=== PATIENT | male | born 2005 | race Caucasian/White ===

== ENCOUNTER 2024-08-24 15:01 | Emergency (ER) | payer SELFPAY ==
[2024-08-24 15:35] VITALS: BP 127/76; PULSE 91; RESP 18; TEMP 36.8; O2SAT 100
--- NOTE | 2024-08-24 16:43 | ED_ITS ---
HPI - Anxiety General Chief Complaint: Anxiety Stated Complaint: PSYCH EVAL Time Seen by Provider: 08/24/24 16:35 History of Present Illness HPI narrative: Pt presents with increased anxiety. 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 Pt can't afford the 90 day Rx of his meds so has not been filling his meds but instead has been smoking more weed which is not helping. Pt has appointment with psychiatrist tomorrow. Pt is not suicidal or homicidal. Related Data Allergies Allergy/AdvReac Type Severity Reaction Status Date / Time Penicillins Allergy Unknown Verified 08/24/24 15:03 Review of Systems 2 Review of Systems: All systems reviewed & are unremarkable except as noted in HPI and below PMFSH Social History Social History Substance use type: marijuana Exam 2 Const: General: healthy appearing and no acute distress Nutritional Appearance: well nourished Orientation/consciousness: patient oriented x3 Limitations: no limitations Eyes: Conjunctivae: conjunctivae normal EOM: EOMs intact bilaterally Resp: Effort & Inspection: normal respiratory effort Auscultation: clear to auscultation bilaterally Cardio: Rate: regular rate Rhythm: regular rhythm GI: GI Palp: Yes Soft to palpation and No Tenderness to palpation present (GI) Auscultation: normal bowel sounds Skin: General skin exam: normal color Rashes: no rashes Wounds: no wounds Neuro: General: patient oriented x3, moves all extremities, no focal motor deficits and CN's II-XI intact bilaterally Cranial nerves: Yes Nystagmus not present Speech: normal speech Extrem: General: normal to inspection and no clubbing, cyanosis or edema Psych: Mental Status: mental status grossly normal Affect: normal affect Attitude: cooperative Course Vital Signs Vital signs: Vital Signs Temperature 98.2 F 08/24/24 15:35 Pulse Rate 91 08/24/24 15:35 Respiratory Rate 18 08/24/24 15:35 Blood Pressure 127/76 08/24/24 15:35 Pulse Oximetry 100 08/24/24 15:35 Oxygen Delivery Room Air 08/24/24 15:35 Temperature 97.7 F 08/24/24 18:08 Pulse Rate 88 08/24/24 18:08 Respiratory Rate 18 08/24/24 18:08 Blood Pressure 122/68 08/24/24 18:08 Pulse Oximetry 100 08/24/24 18:08 Oxygen Delivery Room Air 08/24/24 15:35 MDM - Anxiety MDM Narrative Medical decision making narrative: Pt here with anxiety and not doing well mentally but not SI or HI and has nott been taking meds but smoking a lot of weed. Pt has appt with psychiatrist tomorrow. Will check some labs and make sure not medical and give dose of ativan. labs look fine. Pt feels better after ativan. will send home with follow up with psych tomorrow. Lab Data 08/24/24 17:15 08/24/24 16:55 Labs: Lab Results 08/24/24 08/24/24 Range/Units 16:55 17:15 WBC 13.3 H (4.5-10.0) K/mm3 RBC 6.11 (4.6-6.20) M/mm3 Hgb 18.0 (14.0-18.0) g/dL Hct 52.8 H (42.0-52.0) % MCV 86.4 (80-100) fl MCH 29.5 (26-34) pg MCHC 34.1 (32-36) g/dl RDW 13.0 (11.5-14.5) % Plt Count 370 (150-375) k/mm3 MPV 9.5 (7.4-10.4) fl Immature Gran % (Auto) 0.3 (0-0.5) % Neut % (Auto) 78.0 H (45.5-73.1) % Lymph % (Auto) 14.3 L (18.3-44.2) % [place] % (Auto) 6.9 (2.6-8.5) % Eos % (Auto) 0.1 (0-4.4) % Baso % (Auto) 0.4 (0.2-1.2) % Lymph # (Auto) 1.90 (0.9-3.2) K/mm3 [place] # (Auto) 0.9 H (0.1-0.6) K/mm3 Eos # (Auto) 0.0 (0-0.3) K/mm3 Baso # (Auto) 0.1 (0.0-0.1) K/mm3 Abs Immat Gran (auto) 0.04 H (0.00-0.031) K/mm3 Absolute Neuts (auto) 10.4 H (1.3-6.7) K/mm3 Absolute Nucleated RBC 0.000 (0.0-0.012) K/mm3 Nucleated RBC % 0.0 (0.0-0.2) % Sodium 137 (137-145) mmol/L Potassium 4.6 (3.4-5.0) mmol/L Chloride 101 (98-107) mmol/L Carbon Dioxide 25 (22-30) mmol/L Anion Gap 11 (4-12) mmol/L BUN 17 (9-20) mg/dL Creatinine 0.90 (0.7-1.3) mg/dL Estim Creat Clear Calc 118 ml/min Estimated GFR > 60 (59 - ) Glucose 73 (65-110) mg/dL Calcium 10.4 H (8.4-10.2) mg/dL Total Bilirubin 0.9 (0.2-1.3) mg/dL AST 48 (17-59) U/L ALT 97 H (6-50) U/L Alkaline Phosphatase 103 (38-126) U/L Total Protein 9.0 H (6.3-8.2) g/dL Albumin 5.2 H (3.5-5.1) g/dL TSH 0.771 (0.465-4.680) uIU/mL Salicylates < 1.0 L (2-20) mg/dL Urine Opiates Screen Negative (Negative) Urine Methadone Screen Negative (Negative) Acetaminophen < 10 L (10-30) ug/mL Ur Barbiturates Screen Negative (Negative) Ur Phencyclidine Scrn Negative (Negative) Ur Amphetamine Screen Negative (Negative) U Benzodiazepines Scrn Negative (Negative) Urine Cocaine Screen Negative (Negative) U Cannabinoids Screen Positive A (Negative) Ethyl Alcohol < 10 (<10) mg/dL Discharge Plan Discharge Clinical Impression: Acute anxiety Patient Disposition: Home, Self-Care Condition: Improved Instructions: Antibiotic Form, Anxiety (ED) Patient Language: Georgian Follow-up/Referrals: UNKNOWN,DOCTOR [Primary Care Provider] -
[2024-08-24] MEDS: LORazepam (*CRX) 1 MG TABLET PO (17:06)
[2024-08-24 17:11] LABS: Acetaminophen < 10 ug/mL (10-30); Alanine Aminotransferase 97 U/L (6-50); Albumin Level 5.2 g/dL (3.5-5.1); Alkaline Phosphatase 103 U/L (38-126); Anion Gap 11 mmol/L (4-12); Aspartate Amino Transferase 48 U/L (17-59); Bilirubin,Total 0.9 mg/dL (0.2-1.3); Blood Urea Nitrogen 17 mg/dL (9-20); Calcium 10.4 mg/dL (8.4-10.2); Carbon Dioxide 25 mmol/L (22-30); Chloride 101 mmol/L (98-107); Estimated CRCL calculation 118 ml/min; Estimated Glomerular Filt Rate > 60; Ethanol < 10 mg/dL (<10); Glucose 73 mg/dL (65-110); Potassium 4.6 mmol/L (3.4-5.0); Salicylate < 1.0 mg/dL (2-20); Sodium 137 mmol/L (137-145)
[2024-08-24 17:21] LABS: Basophils Absolute Auto 0.1 K/mm3 (0.0-0.1); Basophils Percent Auto 0.4 % (0.2-1.2); Eosinophils Percent Auto 0.1 % (0-4.4); Hematocrit 52.8 % (42.0-52.0); Immature Granulocyte Absolute 0.04 K/mm3 (0.00-0.031); Immature Granulocyte Percent A 0.3 % (0-0.5); Lymphocytes Percent Auto 14.3 % (18.3-44.2); Mean Corpuscular HGB Conc 34.1 g/dl (32-36); Mean Corpuscular Hemoglobin 29.5 pg (26-34); Mean Corpuscular Volume 86.4 fl (80-100); Mean Platelet Volume 9.5 fl (7.4-10.4); Monocytes Absolute Auto 0.9 K/mm3 (0.1-0.6); Monocytes Percent Auto 6.9 % (2.6-8.5); Neutrophils Absolute Auto 10.4 K/mm3 (1.3-6.7); Platelet Count Result 370 k/mm3 (150-375); Red Blood Count 6.11 M/mm3 (4.6-6.20); White Blood Count 13.3 K/mm3 (4.5-10.0)
[2024-08-24 17:37] LABS: Amphetamine Screen Urine Negative (Negative); Barbiturate Screen Urine Negative (Negative); Benzodiazepines Screen Urine Negative (Negative); Cannabinoid Screen Urine Positive (Negative); Cocaine Screen Urine Negative (Negative); Methadone Screen Urine Negative (Negative); Opiate Screen Urine Negative (Negative); Phencyclidine Screen Urine Negative (Negative)
[2024-08-24 17:41] LABS: Thyroid Stimulating Hormone 0.771 uIU/mL (0.465-4.680)
[2024-08-24 18:08] VITALS: BP 122/68; PULSE 88; RESP 18; TEMP 36.5; O2SAT 100
== END 2024-08-24 18:09 | disposition home or self-care (01) ==
PROVIDERS: Emergency Provider Emergency Medicine
DX: F41.9 Anxiety disorder, unspecified (principal); F31.9 Bipolar disorder, unspecified
CPT/HCPCS: 36415; 80053; 80143; 80179; 80307; 82077; 84443; 85025; 99283; A9270